=== PATIENT | male | born 1940 | race Caucasian/White ===

== ENCOUNTER → 2016-08-08 | Outpatient (CLI) | payer MEDICARE ==
[~2016-08-08] MED LIST: IPRATRPIUM/ALBUTEROL 0.5/2.5MG 3 ML NEBU. ONE
== END | disposition home or self-care (01) ==
LOC: PCVCIMAG 10:46
PROVIDERS: ATTEND Internal Medicine Cardiovascular Disease
DX: E78.00 Pure hypercholesterolemia, unspecified (principal); I25.10 Atherosclerotic heart disease of native coronary artery without angina pectoris; J44.9 Chronic obstructive pulmonary disease, unspecified; I10 Essential (primary) hypertension; I65.29 Occlusion and stenosis of unspecified carotid artery; R09.89 Other specified symptoms and signs involving the circulatory and respiratory systems
CPT/HCPCS: 78452; 93005; 93017; 93880; A9500; G0463; J7620

== ENCOUNTER → 2017-02-16 | Outpatient (CLI) | payer MEDICARE ==
--- NOTE | 2017-02-16 12:54 | PCVCIMAG ---
APPROVED REPORT Patient Location: Out-Patient Indications Bruit Stenosis Doppler Spectral Velocity Analysis PSV / EDVPSV / EDV ECA (R) 167 / 9 cm/sECA (L) 264 / 15 cm/s dICA (R) 59 / 15 cm/sdICA (L) 71 / 17 cm/s Errol (R) 201 / 24 cm/smICA (L) 67 / 16 cm/s pICA (R) 289 / 69 cm/spICA (L) 91 / 17 cm/s Bulb (R) 63 / 12 cm/sBulb (L) 93 / 12 cm/s dCCA (R) 72 / 14 cm/sdCCA (L) 98 / 16 cm/s mCCA (R) 82 / 13 cm/smCCA (L) 83 / 16 cm/s Vert (R) 51 / 10 cm/sVert (L) 74 / 17 cm/s Findings The right carotid bulb has moderately severe heterogeneous plaque. The right proximal internal carotid artery shows 80-90% stenosis. The right common carotid artery shows no significant stenosis. The right external carotid artery shows no significant stenosis. The left carotid bulb has moderate plaque. The left proximal internal carotid artery shows <40% stenosis. The left common carotid artery shows <40% stenosis. The left external carotid artery shows >90% stenosis. Conclusion 1. Right internal carotid artery stenosis (80-90%) 2. Left internal and common carotid stenoses (<40%) 3. Antegrade vertebral flow
== END | disposition home or self-care (01) ==
LOC: PCVCIMAG 11:14
PROVIDERS: ATTEND Internal Medicine Cardiovascular Disease
DX: I65.23 Occlusion and stenosis of bilateral carotid arteries (principal); I44.0 Atrioventricular block, first degree; I25.10 Atherosclerotic heart disease of native coronary artery without angina pectoris; I10 Essential (primary) hypertension; I73.9 Peripheral vascular disease, unspecified; J44.9 Chronic obstructive pulmonary disease, unspecified; E78.00 Pure hypercholesterolemia, unspecified; M19.90 Unspecified osteoarthritis, unspecified site; F17.200 Nicotine dependence, unspecified, uncomplicated; F41.9 Anxiety disorder, unspecified; Z95.5 Presence of coronary angioplasty implant and graft; Z79.82 Long term (current) use of aspirin
CPT/HCPCS: 80061; 93005; 93880; G0463

== ENCOUNTER → 2017-02-23 | Outpatient (CLI) | payer MEDICARE ==
[~2017-02-23] MED LIST changes: +CLOPIDOGREL BISULFATE 75 MG TABLET ONE; +DIAZEPAM 10 MG TABLET. ONE; +HEPARIN SODIUM 5,000 UNIT/ML VIAL for PCVC. ONE; +HEPARIN for ARTERIAL LINE 1,500 ML ONE; +IODIXANOL 270 MG/ML 100 ML VIAL. ONE; +IOHEXOL 350 MG/ML 100 ML VIAL. ONE; -IPRATRPIUM/ALBUTEROL 0.5/2.5MG 3 ML NEBU. ONE; +IV NORMAL SALINE 1000ML BAG 1,000 ML ONE; +IV NORMAL SALINE 500ML BAG 0 ML ONE; +LIDOCAINE 1% Multi-Dose 20 ML VIAL. ONE; +MIDAZOLAM HCL/PF 2 MG/2 ML VIAL. ONE; +fentaNYL PF VIAL 100 MCG/2 ML VIAL ONE; +hydrALAZINE 20 MG/ML VIAL. ONE
--- NOTE | 2017-02-23 10:22 | PCVCINTER ---
EXAM: 1 CERVICOEPHALIC ARCH AORTOGRAM 2 BILATERAL CAROTID ANGIOGRAPHY 3 LEFT VERTEBROBASILAR ANGIOGRAPHY 4 BILATERAL RENAL ANGIOGRAPHY 5 AORTOGRAM AND BILATERAL LOWER EXTREMITY ANGIOGRAPHY INDICATION: Carotid occlusive disease. Left subclavian steal. Hypertension. Renal atherosclerosis. Peripheral arterial disease. Leg pain. PROCEDURE: Procedure and risks of the procedures listed above were discussed with the patient and consent obtained. Risks including but not limited to bleeding, infection, stroke, vascular injury, neurologic injury, embolization, allergic reactions, and contrast-induced nephropathy requiring dialysis were discussed as appropriate and consent obtained. Patient was placed on the angiography table. IV conscious sedation was utilized with appropriate monitoring for 60 minutes. The right groin was prepped and draped in the normal sterile fashion. Ultrasound was used to interrogate the right groin and demonstrate the right common femoral artery. An ultrasound image was saved. Under ultrasound guidance a 21 gauge needle was used to gain access into the right common femoral artery and a 6F vascular sheath was placed. Catheter was placed into the ascending aorta and cervicocephalic aortic arch angiogram performed. Catheter was placed into the suprarenal abdominal aorta and abdominal aortic angiogram performed. Catheter was positioned at the aortic bifurcation and both oblique views of the pelvis obtained. Catheter was placed into the right common carotid artery and right common carotid angiogram performed. Catheter was placed into the left common carotid artery and left common carotid angiogram performed. Catheter was placed into the left subclavian artery and left vertebro-basilar angiogram performed. Catheter was placed into the right renal artery and right renal angiogram performed. Catheter was placed into the left renal artery and left renal angiogram performed. Catheter was placed to the level of the left external iliac artery and left leg runoff angiography obtained. Catheter was placed to the level of the right external iliac artery and right leg runoff angiogram obtained. Dr. Willingham joined the procedure and he then performed coronary angiography. Please see his separate dictation for full details. Catheters and wires were removed and hemostasis obtained using the Mynx device. No immediate complications. FINDINGS: Cervicocephalic arch aortogram: Mild plaque at the origins of the great vessels does not cause significant stenosis. Cranial directed flow in both vertebral arteries is noted. Right common carotid angiogram: This injection fills the right anterior and middle cerebral distributions which show satisfactory patency. Mild plaque cavernous carotid artery does not cause significant stenosis. Moderate ulcerated plaque carotid bulb results in maximum 65% stenosis. It is unchanged compared to 2015 angiogram. The common and external carotid arteries are patent. Left common carotid angiogram: This injection fills both anterior cerebral and the left middle cerebral distribution all of which show satisfactory patency. Mild plaque proximal internal carotid artery does not cause significant stenosis. The common carotid and external carotid arteries also show satisfactory patency. Cavernous carotid artery shows mild plaque without significant stenosis. Left vertebrobasilar angiogram: The left vertebral artery is patent as is the basilar artery and both posterior cerebral arteries. Right renal angiogram: The upper renal artery has mild plaque at its origin without significant stenosis. The lower renal artery is the dominant renal artery and has mild plaque at its origin but no evidence of significant stenosis. No branch vessel stenosis. Left renal angiogram: Mild plaque at the origin of the vessel does not cause significant stenosis. No branch vessel stenosis. Aortogram: There are 2 right and one left renal artery. Extensive calcific plaque infrarenal abdominal aorta does not cause significant stenosis. Pelvis: Moderate calcific plaque right common iliac artery causes mild stenosis. Moderate calcific plaque left common iliac artery causes mild stenosis. Both internal iliac arteries are patent. Both external iliac arteries are normal in size with good patency throughout. Right leg: The common femoral and profunda femoral arteries are patent. Mild scattered plaque throughout the superficial femoral artery and popliteal artery without flow-limiting stenosis. The anterior tibial artery becomes diminutive in size in its distal portion. The peroneal and posterior tibial arteries show good patency into the foot. Left leg: The common femoral and profunda femoral arteries are patent. Mild scattered plaque throughout the superficial femoral artery and popliteal artery without flow-limiting stenosis. The anterior tibial artery is occluded throughout. Peroneal artery is small but patent throughout. The posterior tibial artery is the dominant runoff vessel and shows satisfactory patency into the plantar arteries. IMPRESSION: 65% mildly ulcerated stenosis proximal right internal carotid artery. No significant left carotid stenosis. No hemodynamically significant aortoiliac or superficial femoral/popliteal artery stenoses. LOC:[id number]
--- NOTE | 2017-02-24 13:22 | PCVCINTER ---
APPROVED REPORT Patient Details Patient Status: Room #: 2 The patient is a 77 year-old Male Event Personnel Tarsha Hdz MD, Nolan Manley RT(R), Audi Schwab RN, Swapna Oakley RT(R) Risk Factors Arterial HypertensionDysplipidemia (Type: 1), Family HistoryPeripheral Vascular Disease, Chronic Lung DiseaseHypercholesterolemia, Last Creatanine 0.7Tobacco History (Current/Recent(w/in 1 year)) Previous Procedures/Diagnoses Previous PCI, COPD, PVD, CAD, Hypertension, TIA Procedure Narrative The patient was brought electively to the Cardiac Catheterization Laboratory and was prepped and draped in a sterile manner. The right femoral was infiltrated with 1% Lidocaine subcutaneous anesthesia. Left ventriculogram was performed in LION projection. Pre-demployment femoral angiogram was performed . Closure device was deployed with a 6 Fr Mynx. Hemostasis was obtained with manual pressure following sheath removal without any complications. The patient tolerated the procedure well and there were no complications associated with the procedure. There was no hematoma. Hemodynamics The aortic pressure is 138/64 mmHg with a mean of 90 mmHg. The left ventricular pressure is 149/0 mmHg with a mean of 7 9 mmHg. Conclusion #1 normal left ventricular size and systolic function EF 55-60% #2 LAD moderately calcified with 3040% long proximal lesions diffuse distal disease extends to the apex #3 ramus branch with mild disease #4 circumflex marginal and small nondominant system #5 dominant right coronary artery with large PDA and ANDRIY the proximal segment has an eccentric 70-80% lesion failure very large distal system. First portion of this vessel is diffusely diseased but the focal segment is approaching 80% well preserved distal RCA and large PDA ANDRIY Discussion would recommend intervention to the proximal RCA with his stable anginal symptoms and the extensive distribution of this dominant right coronary artery recommend PTCA stent proximal lesion. This will follow at a later date. No lifting for 48 hours no lying tub Jacuzzi or Lopez for a week will arrange for PTCA stent proximal RCA next week [facility]
== END | disposition home or self-care (01) ==
LOC: PCVCINTER 07:15
PROVIDERS: ATTEND Nuclear Medicine Nuclear Cardiology
DX: I70.223 Atherosclerosis of native arteries of extremities with rest pain, bilateral legs (principal); I65.29 Occlusion and stenosis of unspecified carotid artery; I10 Essential (primary) hypertension; I70.1 Atherosclerosis of renal artery; G45.8 Other transient cerebral ischemic attacks and related syndromes
CPT/HCPCS: 36223; 36225; 36246; 36252; 75716; 76937; 93458; 99152; 99153; C1751; C1760; C1769; C1894; J0360; J1644; J2250; J3010; J7030; Q9967; J0690; J7040

== ENCOUNTER → 2017-06-30 | Outpatient (CLI) | payer MEDICARE | END | disposition home or self-care (01) | LOC: PCVCCLINIC 11:20 | PROVIDERS: ATTEND Internal Medicine Cardiovascular Disease | DX: I25.10 Atherosclerotic heart disease of native coronary artery without angina pectoris (principal); I10 Essential (primary) hypertension; I77.9 Disorder of arteries and arterioles, unspecified; E78.00 Pure hypercholesterolemia, unspecified; J44.9 Chronic obstructive pulmonary disease, unspecified; F17.210 Nicotine dependence, cigarettes, uncomplicated; R94.31 Abnormal electrocardiogram [ECG] [EKG]; Z79.899 Other long term (current) drug therapy; Z79.82 Long term (current) use of aspirin | CPT/HCPCS: 93005; G0463 ==

== ENCOUNTER → 2018-02-15 | Outpatient (CLI) | payer MEDICARE ==
[~2018-02-15] MED LIST changes: -CLOPIDOGREL BISULFATE 75 MG TABLET ONE; -DIAZEPAM 10 MG TABLET. ONE; -HEPARIN SODIUM 5,000 UNIT/ML VIAL for PCVC. ONE; -HEPARIN for ARTERIAL LINE 1,500 ML ONE; -IODIXANOL 270 MG/ML 100 ML VIAL. ONE; -IOHEXOL 350 MG/ML 100 ML VIAL. ONE; -IV NORMAL SALINE 1000ML BAG 1,000 ML ONE; -IV NORMAL SALINE 500ML BAG 0 ML ONE; -LIDOCAINE 1% Multi-Dose 20 ML VIAL. ONE; -MIDAZOLAM HCL/PF 2 MG/2 ML VIAL. ONE; +REGADENOSON 0.4 MG/5 ML DISP.SYRIN. IV; -fentaNYL PF VIAL 100 MCG/2 ML VIAL ONE; -hydrALAZINE 20 MG/ML VIAL. ONE
== END | disposition home or self-care (01) ==
LOC: PCVCIMAG 09:02
DX: I65.23 Occlusion and stenosis of bilateral carotid arteries (principal); I25.10 Atherosclerotic heart disease of native coronary artery without angina pectoris; E78.00 Pure hypercholesterolemia, unspecified; I10 Essential (primary) hypertension; I77.9 Disorder of arteries and arterioles, unspecified; I73.9 Peripheral vascular disease, unspecified; F17.210 Nicotine dependence, cigarettes, uncomplicated; J44.9 Chronic obstructive pulmonary disease, unspecified; E78.5 Hyperlipidemia, unspecified; Z79.899 Other long term (current) drug therapy; Z79.82 Long term (current) use of aspirin
CPT/HCPCS: 78452; 80061; 93005; 93017; 93880; A9500; G0463; J2785

== ENCOUNTER → 2018-10-19 | Outpatient (CLI) | payer MEDICARE ==
--- NOTE | 2018-10-19 10:38 | PCVCIMAG ---
EXAM: BILATERAL CAROTID DUPLEX INDICATION: Carotid Occlusive Disease. FINDINGS: Doppler Measurements (centimeters per second): RIGHT: Peak CCA-77, Peak ECA-154, Diastolic ICA-50, Peak ICA-283, ICA/CCA Ratio-3.5. LEFT: Peak CCA-102, Peak ECA-216, Diastolic ICA-22, Peak ICA-108, ICA/CCA Ratio-1.1. RIGHT CAROTID: The carotid bulb has moderate plaque. The proximal internal carotid artery shows 70-80% stenosis. The common carotid artery shows no significant stenosis. The external carotid artery shows 40% stenosis. LEFT CAROTID: The carotid bulb has moderate plaque. The proximal internal carotid artery shows <40% stenosis. The common carotid artery shows no significant stenosis. The external carotid artery shows 60% stenosis. Antegrade flow in both vertebral arteries. IMPRESSION: 70-80% stenosis of the right internal carotid artery with moderate plaque measures less severe on today's study compared to January 2018. <40% stenosis of the left internal carotid artery with moderate plaque. LOC:[id number]
== END | disposition home or self-care (01) ==
LOC: PCVCIMAG 09:54
PROVIDERS: ATTEND Internal Medicine Cardiovascular Disease
DX: I65.23 Occlusion and stenosis of bilateral carotid arteries (principal); I25.10 Atherosclerotic heart disease of native coronary artery without angina pectoris; I10 Essential (primary) hypertension; E78.00 Pure hypercholesterolemia, unspecified; J44.9 Chronic obstructive pulmonary disease, unspecified; F17.210 Nicotine dependence, cigarettes, uncomplicated; Z79.82 Long term (current) use of aspirin
CPT/HCPCS: 36415; 80061; 93005; 93880; G0463

== ENCOUNTER → 2019-05-05 | Outpatient (CLI) | payer MEDICARE | END | disposition home or self-care (01) | LOC: PCVCCLINIC 10:10 | PROVIDERS: ATTEND Internal Medicine Cardiovascular Disease | DX: I25.10 Atherosclerotic heart disease of native coronary artery without angina pectoris (principal); J44.9 Chronic obstructive pulmonary disease, unspecified; I65.23 Occlusion and stenosis of bilateral carotid arteries; I73.9 Peripheral vascular disease, unspecified; E78.00 Pure hypercholesterolemia, unspecified; I10 Essential (primary) hypertension; Z72.0 Tobacco use | CPT/HCPCS: 36415; 80061; 93005; G0463 ==